=== PATIENT | male | born 1980 | race Hispanic/Latino ===

== ENCOUNTER → 2019-01-17 | Outpatient (CLI) | payer BC ==
--- NOTE | 2019-01-17 15:26 | RAD ---
EXAM DESCRIPTION: Shoulder,Left 2 or More Views CLINICAL HISTORY: PAIN IN LEFT SHOULDER COMPARISON: None Available. TECHNIQUE: Three views of the left shoulder. FINDINGS: There is adequate internal and external rotation. Normal alignment on transcatheter Y view There is no fracture or dislocation. There are no significant degenerative changes observed. AC joint appears intact. No focal bone lesion. IMPRESSION: Negative for fracture or dislocation. Electronically signed by: Arturo Mata MD 01/17/2019 3:24 PM CDT
== END ==
LOC: RAD 14:02
PROVIDERS: ATTEND Nurse Practitioner
DX: M25.512 Pain in left shoulder (principal)